=== PATIENT | female | born 1965 | race Caucasian/White ===

== ENCOUNTER 2018-04-30 09:52 | Emergency (ER) | payer OTHER ==
[2018-04-30 10:11] VITALS: BMI 29.8
--- NOTE | 2018-04-30 10:40 | PDOC ---
Attending Attestation - HPI HPI: 04/30/18 11:15 The patient is a 52 year old female, with no significant past medical history, who presents to the emergency department with acute onset of low back pain at 11PM which radiates to bilateral flank (L>R). She reportedly took naproxen without relief of pain. She reports pain exacerbation with bending forward. She denies any recent falls or traumas. The patient denies chest pain, shortness of breath, headache and dizziness. The patient denies fever, chills, nausea, vomit, diarrhea and constipation. The patient denies dysuria, frequency, urgency and hematuria. Allergies: NKDA - Physicial Exam PE: 04/30/18 13:47 GENERAL: +mildly uncomfortable. Awake, alert, and fully oriented, in no acute distress HEAD: No signs of trauma EYES: PERRLA, EOMI, sclera anicteric, conjunctiva clear ENT: Auricles normal inspection, hearing grossly normal, nares patent, oropharynx clear without exudates. Moist mucosa NECK: Normal ROM, supple, no lymphadenopathy, JVD, or masses LUNGS: Breath sounds equal, clear to auscultation bilaterally. No wheezes, and no crackles HEART: Regular rate and rhythm, normal S1 and S2, no murmurs, rubs or gallops ABDOMEN: Soft, nontender, normoactive bowel sounds. No guarding, no rebound. No masses MUSKULOSKELETAL: +diffuse lumbar tenderness. no spinous process tenderness. EXTREMITIES: Normal range of motion, no edema. No clubbing or cyanosis. No cords, erythema, or tenderness NEUROLOGICAL: Cranial nerves II through XII grossly intact. Normal speech. SKIN: Warm, Dry, normal turgor, no rashes or lesions noted. - Medical Decision Making 04/30/18 11:15 Documentation prepared by Kiera Moffett, acting as medical device sales representative for Manasa Peres MD
[2018-04-30] MEDS ORDERED: ACETAMINOPHEN 1000 MG/100 ML VIAL (NON FORMULARY) IVPB ONE (11:14)
--- NOTE | 2018-04-30 11:28 | PDOC ---
History of Present Illness - General Chief Complaint: Pain, Acute Stated Complaint: BACK PAIN Time Seen by Provider: 04/30/18 10:24 History Source: Patient Exam Limitations: No Limitations - History of Present Illness Initial Comments: 04/30/18 11:16 [id number] with h/o NIDDM on Metformin, who p/w abrupt onset of low back pain unlike anything she has experienced before, onset last night at 11 pm last night suddenly while she was sleeping, and this awakened her from sleep. She took naproxen with partial relief, but on awakening this morning she had severe pain to the same area, midline low back. Denies headache, neck pain, upper back pain , lightheadedness, vertigo, n/t/w focally, chest pain, abdominal pain, dysuria, hematuria, urinary retention or incontinence, bowel incontinence, difficulty walking (other than 2/2 pain), etc. Past History - Past Medical History Allergies/Adverse Reactions: Allergies Allergy/AdvReac Type Severity Reaction Status Date / Time No Known Allergies Allergy Verified 04/30/18 10:06 Home Medications: Ambulatory Orders Cholecalciferol (Vitamin D3) [Vitamin D3 -] 50,000 unit PO WEEKLY 04/30/18 Lidocaine 5% Patch [Lidoderm -] 5 patch TP DAILY #7 patch 04/30/18 metFORMIN HCL [Metformin HCl] 1,000 mg PO DAILY 04/30/18 COPD: No Dementia: No Diabetes: Yes GI Disorders: No Kidney Stones: No Other medical history: bone problems - Surgical History Cholecystectomy: No Lung Surgery: No - Immunization History Immunization Up to Date: No - Suicide/Smoking/Psychosocial Hx Smoking History: Never smoked Have you smoked in the past 12 months: No Information on smoking cessation initiated: No Hx Alcohol Use: No Drug/Substance Use Hx: No Review of Systems - Review of Systems Able to Perform ROS?: Yes Comments:: GEN: no fever, chills, malaise, generalized weakness, or weight change HEENT: no ear pain, sore throat, vision change, or eye pain CV: no chest pain, palpitations, lightheadedness, syncope, or edema RESP: no cough, wheezing, or SOB GI: no abdominal pain, nausea, vomiting, diarrhea, constipation, or white/black/ bloody stool : no dysuria, hematuria, incontinence, retention, bleeding, or discharge MSK: back pain, no neck pain, muscle weakness/pain, or joint swelling/pain NEURO: no headache, seizure, vertigo, numbness, tingling, or focal weakness PSYCH: no substance use, no behavior change SKIN: no jaundice, no rash ROS otherwise negative except as noted in HPI *Physical Exam - Vital Signs Last Vital Signs Temp Pulse Resp BP Pulse Ox 98.2 F 97 H 16 126/63 97 04/30/18 10:08 04/30/18 10:08 04/30/18 10:08 04/30/18 10:08 04/30/18 10:08 - Physical Exam Comments: GENERAL: uncomfortable-appearing, A/Ox4, intermittently writhing and grabbing low back, intermittent mild distress, answers questions appropriately, daughter at bedside HEENT: PERRLA, EOMI, moist mucous membranes NECK: no midline ttp, no spinal stepoff or deformity, no hematoma, full ROM, neck supple BACK: midline ttp at L3-5 without stepoff or deformity, no back hematoma, diffuse lumbar paraspinous tenderness and spasm with L>R CARDIOVASCULAR: regular rate/rhythm, normal S1S2, no MGR, strong peripheral pulses, capillary refill <2 seconds, extremities wwp, no edema LUNGS/RESPIRATORY: no respiratory distress, CTAB GI/ABDOMEN: symmetric [id number], normoactive BS, soft, no ttp, no midline pulsatile masses : no CVA tenderness EXTREMITIES: no muscle atrophy, no acute deformity SKIN: warm and dry, no pallor, no jaundice, no rash, no bruising, no skin breakdown, no cuts, no lesions NEUROLOGICAL: GCS 15, CN II-XII grossly intact, 5/5 strength proximally and distally, no facial droop, no tenderness to compression of the sciatic nerve on either side, gait not tested initially Moderate Sedation - Procedure Monitoring Vital Signs: Procedure Monitoring Vital Signs Temperature 98.2 F 04/30/18 10:08 Pulse Rate 97 H 04/30/18 10:08 Respiratory Rate 16 04/30/18 10:08 Blood Pressure 126/63 04/30/18 10:08 O2 Sat by Pulse Oximetry (%) 97 04/30/18 10:08 ED Treatment Course - LABORATORY CBC & Chemistry Diagram: 04/30/18 11:35 04/30/18 11:35 - RADIOLOGY Radiology Studies Ordered: Category Date Time Status LUMBAR SPINE CT W/O CONTRAST [CT] Stat CT Scan 04/30/18 11:15 Ordered Medical Decision Making - Medical Decision Making Pt without significant h/o back pain p/w acute back pain. No new red flag symptoms (see HPI). Initial Vital Signs Temp Pulse Resp BP Pulse Ox 98.2 F 97 H 16 126/63 97 04/30/18 10:08 04/30/18 10:08 04/30/18 10:08 04/30/18 10:08 04/30/18 10:08 Exam: As noted in Physical Exam section. DDX IBNLT: DDD, DJD, osteophyte, compression fxr, other vertebral or spinous process fxr; malignancy, spinal epidural abscess, epidural hematoma, meningitis , multiple myeloma, or other more concerning etiology. W/U ordered: TX ordered: Laboratory Tests 04/30/18 04/30/18 04/30/18 11:35 11:35 11:35 WBC 6.7 RBC 4.31 Hgb 12.9 Hct 36.8 MCV 85.4 MCH 29.8 MCHC 34.9 RDW 13.4 Plt Count 249 MPV 8.0 Absolute Neuts (auto) 4.7 Neutrophils % 69.6 Lymphocytes % 24.9 Monocytes % 4.8 Eosinophils % 0.4 Basophils % 0.3 Nucleated RBC % 0 PT with INR 11.90 INR 1.01 PTT (Actin FS) 28.7 Sodium 136 Potassium 4.1 Chloride 101 Carbon Dioxide 26 Anion Gap 8 BUN 11 Creatinine 0.7 Creat Clearance w eGFR > 60 Random Glucose 287 H Calcium 8.9 Magnesium 2.0 Total Bilirubin 0.5 AST 13 L ALT 26 Alkaline Phosphatase 127 H Creatine Kinase Troponin I Total Protein 7.1 Albumin 3.4 Urine Color Urine Appearance Urine pH Ur Specific Stollings Urine Protein Urine Glucose (UA) Urine Ketones Urine Blood Urine Nitrite Urine Bilirubin Urine Urobilinogen Ur Leukocyte Esterase 04/30/18 04/30/18 11:35 12:10 WBC RBC Hgb Hct MCV MCH MCHC RDW Plt Count MPV Absolute Neuts (auto) Neutrophils % Lymphocytes % Monocytes % Eosinophils % Basophils % Nucleated RBC % PT with INR INR PTT (Actin FS) Sodium Potassium Chloride Carbon Dioxide Anion Gap BUN Creatinine Creat Clearance w eGFR Random Glucose Calcium Magnesium Total Bilirubin AST ALT Alkaline Phosphatase Creatine Kinase 73 Troponin I < 0.02 Total Protein Albumin Urine Color Yellow Urine Appearance Clear Urine pH 5.0 Ur Specific Stollings 1.026 Urine Protein Negative Urine Glucose (UA) 3+ H Urine Ketones Negative Urine Blood Negative Urine Nitrite Negative Urine Bilirubin Negative Urine Urobilinogen Negative Ur Leukocyte Esterase Negative 04/30/18 12:47 CT is ready for the patient, she is going for scan. Appears more comfortable after Ofirmev. 04/30/18 13:56 Order has been placed for Toradol IVPUSH. Patient had L-spine CT; pending Radiology read. Vital Signs Temperature 98.0 F 04/30/18 14:04 Pulse Rate 82 04/30/18 14:04 Respiratory Rate 18 04/30/18 14:04 Blood Pressure 113/76 04/30/18 14:04 O2 Sat by Pulse Oximetry (%) 97 04/30/18 14:04 CT/LUMBAR SPINE CT W/O CONTRAST History of back pain CT scan of the lumbar spine without intravenous contrast. Coronal and sagittal reconstruction images were obtained. No prior is available for comparison. There is straightening of the lumbar spine. The height and alignment of the vertebral bodies appear unremarkable. At L5-S1 level there is minimal central and right paracentral disc bulge without cord or nerve root impingement. Mild bilateral facet hypertrophy. L4-L5 minimal disc bulge without gross nerve root impingement. Otherwise, no gross disc herniation, epidural mass or spinal canal stenosis are identified. No paraspinal soft tissue abnormality seen. Note is made of postcholecystectomy surgical metallic clips. IMPRESSION: Minimal disc bulge at L4-L5 and L5-S1 level without gross nerve root impingement. Correlate clinically to determine further evaluation and follow-up. No compression fracture or subluxation are identified 04/30/18 16:08 Patient states pain improved after lidocaine patch applied, she is able to walk. E-Rx sent for lidocaine patches to the patient's pharmacy. The Pt has gotten moderate relief of symptoms while in the ED. She is able to walk without issue and is leaving the department with her daughter. She is counseled on appropriate care for her back pain, and informed of elevated BG. I have a long discussion with her and her daughter about the importance of BG control. They are appropriate for discharge with close outpatient follow up. The Pt is comfortable with this plan and will follow up with their primary care provider in 1-3 days. Specific return precautions are discussed and they will come back to the ER if necessary. 05/01/18 08:19 05/01/18 08:19 *DC/Admit/Observation/Transfer Diagnosis at time of Disposition: Lower back pain Qualifiers: Chronicity: acute Back pain laterality: midline Sciatica presence: without sciatica Qualified Code(s): M54.5 - Low back pain Diabetes Qualifiers: Diabetes mellitus type: other specified (including KARSON) Diabetes mellitus termite inspector insulin use: without termite inspector use Diabetes mellitus complication status: with unspecified complications Qualified Code(s): E13.8 - Other specified diabetes mellitus with unspecified complications - Discharge Dispostion Disposition: HOME Condition at time of disposition: Stable Decision to Admit order: No - Prescriptions Prescriptions: Lidocaine 5% Patch [Lidoderm -] 5 patch TP DAILY #7 patch - Referrals Referrals: Grecia Newsome DO [Primary Care Provider] - - Patient Instructions Additional Instructions: You were seen in the ER for lower back pain. We did laboratory work on your blood and urine, and a CT scan of the lower back, and there are no new concerning abnormalities. We gave you IV Tylenol and IV Toradol for the pain in the ER, and this did help. Please DO NOT stay in bed all day because this will make your pain worse. You should be careful, but do gentle stretching exercises to keep your back muscles active. Take Tylenol and Motrin as you need them for pain, following the instructions on the bottle, and use ice packs and heating pads as needed. Follow up with your PCP in 1-3 days. Come back to the ER for any new or worsening symptoms, especially new numbness, tingling, or weakness of one side or part of you body, inability to urinate, incontinence of urine or stool, or other concerning symptoms. Your blood sugar was high on your labs today. You need to follow up with your regular doctor and have this re-checked. You may need to adjust your diabetes medication doses or change medications to better control this. Long-term problems can arise if you blood sugar is not better controlled, such as heart and kidney problems. Take your Metformin as prescribed, and check your blood sugar at home. - Post Discharge Activity
[2018-04-30 11:43] LABS: BASO % 0.3 % (0-2.0); EOS % 0.4 % (0-4.5); HEMATOCRIT 36.8 % (32.4-45.2); HEMOGLOBIN 12.9 GM/dL (10.7-15.3); LYMPH % 24.9 % (8-40); MCH 29.8 pg (25.7-33.7); MCHC 34.9 g/dl (32.0-36.0); MEAN CELL VOLUME 85.4 fl (80-96); MONO % 4.8 % (3.8-10.2); NEUT % 69.6 % (42.8-82.8); PLATELET COUNT 249 K/MM3 (134-434); RBC 4.31 M/mm3 (3.60-5.2); RDW 13.4 % (11.6-15.6); WHITE BLOOD COUNT 6.7 K/mm3 (4.0-10.0)
[2018-04-30] MEDS ORDERED: ACETAMINOPHEN INJECTION 100 ML IVPB ONE (11:54)
[2018-04-30 12:00] LABS: INR 1.01 (0.83-1.09); PROTHROMBIN TIME (PATIENT) 11.9 SEC (9.7-13.0)
[2018-04-30 12:02] LABS: ACTIVATED PTT 28.7 SECONDS (25.2-36.5)
[2018-04-30 12:21] LABS: ALBUMIN 3.4 g/dl (3.4-5.0); ALK PHOS 127 U/L (45-117); ANION GAP 8 MMOL/L (8-16); BILIRUBIN,TOTAL 0.5 mg/dL (0.2-1); BLOOD UREA NITROGEN 11 mg/dL (7-18); CALCIUM 8.9 mg/dL (8.5-10.1); CHLORIDE 101 mmol/L (98-107); CO2 26 mmol/L (21-32); CREATININE 0.7 mg/dL (0.55-1.3); GLUCOSE,RANDOM 287 mg/dL (74-106); POTASSIUM 4.1 mmol/L (3.5-5.1); SGOT/AST 13 U/L (15-37); SGPT/ALT 26 U/L (13-61); SODIUM 136 mmol/L (136-145); TOT PROT 7.1 g/dl (6.4-8.2)
[2018-04-30 12:31] LABS: URINE APPEARANCE CLEAR; URINE BILIRUBIN NEGATIVE (<2.0 mg/dL); URINE COLOR YELLOW; URINE GLUCOSE (UA) 3+ (NEGATIVE); URINE KETONE NEGATIVE (NEGATIVE); URINE LEUK ESTERASE NEGATIVE (NEGATIVE); URINE NITRITE NEGATIVE (NEGATIVE); URINE PROTEIN NEGATIVE (NEGATIVE); URINE UROBILINOGEN NEGATIVE mg/dL (0.2-1.0)
[2018-04-30] MEDS ORDERED: KETOROLAC TROMETHAMINE 30 MG/1 ML VIAL IVPUSH ONE (13:44)
[2018-04-30 14:06] VITALS: BP 113/76; PULSE 82; TEMP 98
[2018-04-30] MEDS ORDERED: KETOROLAC TROMETHAMINE 30 MG/1 ML VIAL ONE (15:11)
[2018-04-30] MEDS ORDERED: LIDOCAINE 5% TOPICAL PATCH TP ONE (15:17)
[2018-04-30] MEDS ORDERED: LIDOCAINE 5% TOPICAL PATCH ONE (15:48)
[2018-04-30] MEDS ORDERED: LIDOCAINE PATCH REMOVAL MC SCH (22:00)
== END 2018-04-30 16:15 | disposition home or self-care (01) ==
LOC: JER 09:52
PROC: 3E0333Z Introduction of Anti-inflammatory into Peripheral Vein, Percutaneous Approach (ICD-10-PCS; principal; 2018-04-30)
DX: M54.5 Low back pain (principal); E11.9 Type 2 diabetes mellitus without complications; Z79.84 Long term (current) use of oral hypoglycemic drugs
CPT/HCPCS: 36415; 72131-TC; 80053; 81003; 82550; 83735; 84484; 85025; 85610; 85730; 87086; 99281-25; J0131

== ENCOUNTER 2018-06-14 15:05 | Emergency (ER) | payer OTHER ==
[2018-06-14 15:12] VITALS: TEMP 98.2; BMI 30.7
--- NOTE | 2018-06-14 15:26 | PDOC ---
History of Present Illness - General Chief Complaint: Blood Sugar Problem Stated Complaint: BACK PAIN / BG PROBLEM Time Seen by Provider: 06/14/18 15:24 - History of Present Illness Initial Comments: 06/14/18 16:01 52f with pmh of diabetes presents with persistently elevated blood sugar in the 400's, 500's for the past week despite being compiant with her medication., She told her provider on the phone about it 2 days ago who advised doubling her medication but patient states that that didn't improve her blood sugar. In addition she endorses persistent back pain especially over the left Past History - Past Medical History Allergies/Adverse Reactions: Allergies Allergy/AdvReac Type Severity Reaction Status Date / Time No Known Allergies Allergy Verified 06/14/18 15:11 Home Medications: Ambulatory Orders Cholecalciferol (Vitamin D3) [Vitamin D3 -] 50,000 unit PO WEEKLY 04/30/18 Lidocaine 5% Patch [Lidoderm -] 5 patch TP DAILY #7 patch 04/30/18 metFORMIN HCL [Metformin HCl] 1,000 mg PO DAILY 04/30/18 Methocarbamol [Robaxin -] 500 mg PO BID #60 tablet 06/14/18 COPD: No Dementia: No Diabetes: Yes GI Disorders: No Kidney Stones: No - Surgical History Cholecystectomy: No Lung Surgery: No - Immunization History Immunization Up to Date: No - Suicide/Smoking/Psychosocial Hx Smoking History: Never smoked Have you smoked in the past 12 months: No Hx Alcohol Use: No Drug/Substance Use Hx: No *Physical Exam - Vital Signs Last Vital Signs Temp Pulse Resp BP Pulse Ox 98.2 F 92 H 18 126/61 98 06/14/18 15:10 06/14/18 15:10 06/14/18 15:10 06/14/18 15:10 06/14/18 15:10 Moderate Sedation - Procedure Monitoring Vital Signs: Procedure Monitoring Vital Signs Temperature 98.2 F 06/14/18 15:10 Pulse Rate 92 H 06/14/18 15:10 Respiratory Rate 18 06/14/18 15:10 Blood Pressure 126/61 06/14/18 15:10 O2 Sat by Pulse Oximetry (%) 98 06/14/18 15:10 ED Treatment Course - LABORATORY CBC & Chemistry Diagram: 06/14/18 16:20 06/14/18 16:20 Medical Decision Making - Medical Decision Making 06/14/18 18:51 Pt with elevated BGMs, also presenting with low back pain. She has disc disease on a prior CT from prior ED admission with similar complaint. There is no indication that this is an infectious process in the spine based on her exam. Will r/o UTI, pna, skin infection. Will r/o DKA. All basic labs WNL, no acetones no urine ketones. Patient received 2L of NS. Spoke to Dr. 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 Recommended giving the patient 10 units of insulin SQ and if no DKA ok to discharge the patient, telling her to increase her postprandial Humolog from 10 to 15U. He will see the patient in his office on Friday. Patient receiving 6U of insulin SQ as trial. Will repeat finger stick: 210 Ok to discharge the patient with return precautions *DC/Admit/Observation/Transfer Diagnosis at time of Disposition: Acute hyperglycemia - Discharge Dispostion Disposition: HOME Condition at time of disposition: Improved Decision to Admit order: No - Referrals - Patient Instructions Printed Discharge Instructions: DI for Hyperglycemia -- Adult Additional Instructions: Follow up with your appointment with Dr. Downs on Friday. Increase your dose of Humalog to 15 units after each meal. 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
[2018-06-14] MEDS ORDERED: SODIUM CHLORIDE 1,000 ML IV STA ×2 (15:41→17:45)
[2018-06-14] MEDS ORDERED: SODIUM CHLORIDE 1,000 ML IV ONE (15:44)
[2018-06-14] MEDS ORDERED: ACETAMINOPHEN 1000 MG/100 ML VIAL (NON FORMULARY) IVPB ONE (15:46)
[2018-06-14] MEDS ORDERED: ACETAMINOPHEN INJECTION 100 ML IVPB ONE (15:57)
--- NOTE | 2018-06-14 16:18 | PDOC ---
Attending Attestation - HPI HPI: 06/14/18 16:23 The patient is a 52 year old female, with a significant PMH DM type 2 ( compliant with medication) - diagnosis April 2018, who presents to the emergency department for evaluation of high blood sugar. The patient states she called her PCP about her consistently high blood sugar and was advised to double dose. Patient also notes some left lower back pain. The patient denies chest pain, shortness of breath, headache and dizziness. Denies fever, chills, nausea, vomit, diarrhea and constipation. Denies dysuria, frequency, urgency and hematuria. Allergies: NKA Social history: None reported <Qian Tijerina - Last Filed: 06/14/18 16:23> - Resident Resident Name: Raul Reyes - ED Attending Attestation I have performed the following: I have examined & evaluated the patient, The case was reviewed & discussed with the resident, I agree w/resident's findings & plan, Exceptions are as noted - Physicial Exam PE: GENERAL: Awake, alert, and fully oriented, in no acute distress HEAD: No signs of trauma EYES: PERRLA, EOMI, sclera anicteric, conjunctiva clear ENT: Auricles normal inspection, hearing grossly normal, nares patent, oropharynx clear without exudates. Moist mucosa NECK: Normal ROM, supple, no lymphadenopathy, JVD, or masses LUNGS: Breath sounds equal, clear to auscultation bilaterally. No wheezes, and no crackles HEART: Regular rate and rhythm, normal S1 and S2, no murmurs, rubs or gallops ABDOMEN: Soft, nontender, normoactive bowel sounds. No guarding, no rebound. No masses EXTREMITIES: Normal range of motion, no edema. No clubbing or cyanosis. No cords, erythema, or tenderness NEUROLOGICAL: Cranial nerves II through XII grossly intact. Normal speech, normal gait. Motor and sensation intact SKIN: Warm, Dry, normal turgor, no rashes or lesions noted. SPINE: +Tenderness to L4-L5 region and surrounding soft tissue. No stepoffs. - Medical Decision Making Pt with elevated BGMs, also presenting with low back pain. She has disc disease on a prior CT from prior ED admission with similar complaint. There is no indication that this is an infectious process in the spine based on her exam. Will r/o UTI, pna, skin infection. Will r/o DKA. <Farzaneh Voss - Last Filed: 06/14/18 17:45> Attestations - Attestations 06/14/18 16:24 Documentation prepared by Qian Tijerina, acting as medical coding instructor for Farzaneh Voss MD. <Qian Tijerina - Last Filed: 06/14/18 16:23>
[2018-06-14 16:32] LABS: BASO % 0.5 % (0-2.0); EOS % 0.5 % (0-4.5); HEMATOCRIT 39.8 % (32.4-45.2); HEMOGLOBIN 13.7 GM/dL (10.7-15.3); LYMPH % 26.6 % (8-40); MCH 30.3 pg (25.7-33.7); MCHC 34.5 g/dl (32.0-36.0); MEAN CELL VOLUME 87.8 fl (80-96); MONO % 4.2 % (3.8-10.2); NEUT % 68.2 % (42.8-82.8); PLATELET COUNT 232 K/MM3 (134-434); RBC 4.53 M/mm3 (3.60-5.2); RDW 13.2 % (11.6-15.6)
[2018-06-14 16:32] LABS: VENOUS PC02 42.2 mmHg (38-52); VENOUS PH 7.39 (7.32-7.42); VENOUS PO2 59.4 mmHg (28-48)
[2018-06-14 16:54] LABS: INR 0.97 (0.83-1.09); PROTHROMBIN TIME (PATIENT) 11.5 SEC (9.7-13.0)
[2018-06-14 16:56] LABS: ACTIVATED PTT 30.8 SECONDS (25.2-36.5)
[2018-06-14 17:36] LABS: ALBUMIN 3.6 g/dl (3.4-5.0); ALK PHOS 134 U/L (45-117); ANION GAP 10 MMOL/L (8-16); BILIRUBIN,TOTAL 0.3 mg/dL (0.2-1); BLOOD UREA NITROGEN 11 mg/dL (7-18); CALCIUM 8.9 mg/dL (8.5-10.1); CHLORIDE 100 mmol/L (98-107); CO2 26 mmol/L (21-32); CREATININE 0.8 mg/dL (0.55-1.3); POTASSIUM 3.9 mmol/L (3.5-5.1); SGOT/AST 21 U/L (15-37); SGPT/ALT 36 U/L (13-61); SODIUM 137 mmol/L (136-145); TOT PROT 7.2 g/dl (6.4-8.2)
[2018-06-14 17:37] LABS: GLUCOSE,RANDOM 393 mg/dL (74-106)
[2018-06-14 18:01] LABS: URINE APPEARANCE CLEAR; URINE BILIRUBIN NEGATIVE (<2.0 mg/dL); URINE COLOR LTYELLOW; URINE GLUCOSE (UA) 3+ (NEGATIVE); URINE KETONE NEGATIVE (NEGATIVE); URINE LEUK ESTERASE NEGATIVE (NEGATIVE); URINE NITRITE NEGATIVE (NEGATIVE); URINE PROTEIN NEGATIVE (NEGATIVE); URINE UROBILINOGEN NEGATIVE mg/dL (0.2-1.0)
[2018-06-14] MEDS ORDERED: INSULIN REGULAR HUMAN 100 UNITS/ML *VIAL SQ ONE (18:02)
[2018-06-14] MEDS ORDERED: INSULIN REGULAR HUMAN 100 UNITS/ML *VIAL ONE (18:11)
[2018-06-14 19:09] VITALS: BP 115/65; PULSE 98
--- NOTE | 2018-06-16 13:51 | EKG ---
Test Reason : Blood Pressure : / mmHG Vent. Rate : 079 BPM Atrial Rate : 079 BPM P-R Int : 148 ms QRS Dur : 098 ms QT Int : 382 ms P-R-T Axes : 052 018 023 degrees QTc Int : 438 ms NORMAL SINUS RHYTHM INCOMPLETE RIGHT BUNDLE BRANCH BLOCK BORDERLINE ECG NO PREVIOUS ECGS AVAILABLE Confirmed by MD Abdullahi, Gianluca ([id number]) on 06/16/2018 1:51:18 PM Referred By: Confirmed By:Gianluca Fernando MD
== END 2018-06-14 19:09 | disposition home or self-care (01) ==
LOC: JER 15:05
PROC: 3E0337Z Introduction of Electrolytic and Water Balance Substance into Peripheral Vein, Percutaneous Approach (ICD-10-PCS; principal; 2018-06-14)
PROC: 3E033NZ Introduction of Analgesics, Hypnotics, Sedatives into Peripheral Vein, Percutaneous Approach (ICD-10-PCS; 2018-06-14)
PROC: 3E013VG Introduction of Insulin into Subcutaneous Tissue, Percutaneous Approach (ICD-10-PCS; 2018-06-14)
DX: E11.65 Type 2 diabetes mellitus with hyperglycemia (principal); Z79.84 Long term (current) use of oral hypoglycemic drugs
CPT/HCPCS: 36415; 80053; 81003; 82009; 82803; 82962; 83036; 85025; 85610; 85730; 87086; 93005; 93010; 96361; 96372; 96374; 99283-25; J0131; J7030